=== PATIENT | female | born 1955 | race Caucasian/White ===

== ENCOUNTER → 2017-01-30 | Outpatient (CLI) | payer MEDICARE ==
[2017-01-30 11:22] LABS: BLOOD UREA NITROGEN 15 MG/DL (7-18); GLOMERULAR FILTRATION RATE > 60.0 (>45)
== END ==
LOC: M LAB 10:20
PROVIDERS: ATTEND Nurse Practitioner
DX: C50.911 Malignant neoplasm of unspecified site of right female breast (principal)

== ENCOUNTER 2017-06-23 18:33 | Emergency (ER) | payer MEDICARE ==
[~2017-06-23] VITALS: Ht 165.1 cm; Wt 73.3 kg
[2017-06-23 21:19] LABS: ADD MORPHOLOGY? NO; BASO # 0.1 10^3/uL (0.0-0.2); BASO % 0.6 % (0.0-1.0); EOS # 0.4 10^3/uL (0.0-0.50); EOS % 4.5 % (0.0-3.0); IMMATURE GRANULOCYTE % 0.2 % (0-0); LYMPH # 2.1 10^3/uL (1.5-4.5); LYMPH % 26.5 % (24.0-44.0); MEAN CORPUSCULAR HEMOGLOBIN 29.6 pg (27.0-33.0); MEAN CORPUSCULAR HGB CONC 33.1 g/dl (32.0-36.5); MEAN CORPUSCULAR VOLUME 89.5 fl (80.0-96.0); MONO # 0.7 10^3/uL (0.0-0.8); MONO % 9.2 % (0.0-5.0); NEUTROPHILS # 4.7 10^3/uL (1.8-7.7); PLATELET COUNT, AUTOMATED 278 10^3/uL (150-450); RED CELL DISTRIBUTION WIDTH 12.2 % (11.5-14.5)
[2017-06-23 21:29] LABS: INR 0.86
[2017-06-23 21:46] LABS: ALBUMIN 3.8 GM/DL (3.2-5.2); ALKALINE PHOSPHATASE 91 U/L (45-117); ALT/SGPT 28 U/L (12-78); AMYLASE 73 U/L (25-115); ANION GAP 5 MEQ/L (8-16); AST/SGOT 21 U/L (15-37); BILIRUBIN,DIRECT < 0.1 MG/DL (0.0-0.2); BILIRUBIN,TOTAL 0.6 MG/DL (0.2-1.0); BLOOD UREA NITROGEN 15 MG/DL (7-18); CALCIUM LEVEL 9.1 MG/DL (8.8-10.2); CARBON DIOXIDE LEVEL 30 MEQ/L (21-32); CHLORIDE LEVEL 105 MEQ/L (98-107); CREATININE FOR GFR 0.79 MG/DL (0.55-1.02); GLOMERULAR FILTRATION RATE > 60.0 (>45); GLUCOSE, FASTING 95 MG/DL (80-110); POTASSIUM SERUM 3.8 MEQ/L (3.5-5.1); SODIUM LEVEL 140 MEQ/L (136-145); TOTAL PROTEIN 7.6 GM/DL (6.4-8.2)
--- NOTE | 2017-06-23 22:00 | REPUSA ---
Clinical history: Right upper quadrant pain. Findings: The pancreas is limited in visualization secondary to overlying bowel gas. The liver demons trates uniform echotexture and echogenicity, with no mass lesions. However, a simple cyst is seen in the right lobe measuring 1.3 cm in diameter. The gallbladder is contracted. Numerous echogenic shadow ing foci are appreciated. There is no discrete evidence of pericholecystic free fluid. The common melissa e duct measures 6 mm and is within normal limits. The right kidney measures 10.1 cm in length and is within normal limits. There is no ascites. Impression: 1. Cholelithiasis, with gallbladder sludge. No discrete evidence of acute cholecystitis. 2. Simple hepatic cyst.
[2017-06-23] MEDS ORDERED: ZOFR4TAB3 PO (22:42)
[2017-06-23 22:52] VITALS: BP 122/58
--- NOTE | 2017-06-24 08:29 | REP ---
Acute abdominal series three views including PA chest and supine upright abdomen: PA chest: Comparison is 12/15/2012. There is minor discoid atelectasis in the left costophrenic angle. Lung al otherwise clear. The cardiac size is normal. The khushbu, mediastinum, bony thorax unremarkable. There is no free subdiaphragmatic air. Impression: Minor discoid atelectasis in the left costophrenic angle. Abdomen, supine upright views: Comparison is a CT of the abdomen pelvis dated 07/25/2016. The bowel gas pattern is normal. There are calcifications versus ligation clips in the pelvis bilaterally. There are no other calcifications. There is scoliosis convex left at the thoracolumbar junction. This is unchanged. The skeletal structures and soft tissues are otherwise unremarkable. Impression: Normal bowel gas pattern. Signed by Clive Fraser MD 06/24/2017 08:20 A
== END 2017-06-23 22:54 | disposition home or self-care (01) ==
LOC: M ED 18:33
DX: K80.20 Calculus of gallbladder without cholecystitis without obstruction (principal); Z88.8 Allergy status to other drugs, medicaments and biological substances; Z88.5 Allergy status to narcotic agent; Z88.0 Allergy status to penicillin; Z88.1 Allergy status to other antibiotic agents; Z98.890 Other specified postprocedural states; Z87.19 Personal history of other diseases of the digestive system

== ENCOUNTER → 2019-11-21 | Outpatient (CLI) | payer MEDICARE ==
[~2019-11-21] MED LIST: ZOFR4TAB14 PO
[2019-11-21 16:28] LABS: BLOOD UREA NITROGEN 18 MG/DL (7-18); CREATININE FOR GFR 0.91 MG/DL (0.55-1.30); GLOMERULAR FILTRATION RATE > 60.0 (>45)
== END ==
LOC: M WUC 13:56
PROVIDERS: ATTEND Surgery
DX: Z01.812 Encounter for preprocedural laboratory examination (principal)